=== PATIENT | female | born 1985 | race Caucasian/White ===

== ENCOUNTER 2016-11-12 19:59 | Emergency (ER) | payer OTHER ==
--- NOTE | ~2016-11-12 | CR151 ---
[facility] A Service of [facility] RADIOLOGY TEXT RESULTS PATIENT: CHELI ELIZONDO LOCATION: [place] : [birth year] UNIT #: [id number] AGE: [address]: Kadi Mcclain MD SEX: F ORDER DR: [id number] [address] [address] [id number] MR#: [id number] Acc #: [id number] NAME: CHELI ELIZONDO : 1985 SEX: F STUDY DATE/TIME: 11/12/2016 19:40 UNIT: CFTX ROOM: STUDY DESCRIPTION: CR Hip Min 2 Views Rt Attending Physician: Kadi Mcclain M.D. Referring Physician: Self Referral-Refer Use Only Ordering Physician: Ed Sanjeev Luciano M.D. Primary Care Physician: Kuldip Judd M.D. MEDICAL IMAGING REPORT This report is preliminary unless electronic signature is present EXAM Right hip series, 11/12/2016 INDICATION Right hip pain for the past 4 days. PROCEDURE Frontal view of the pelvis and lateral view of the right hip. COMPARISON None. FINDINGS Previous right hip prosthesis. No surrounding lucency. No acute fracture or dislocation. IMPRESSION No acute findings. Bilateral hip prostheses. Dictated by... Marc Wilson M.D. THIS IS AN ELECTRONICALLY VERIFIED REPORT Marc Wilson M.D. at 11/14/2016 7:00 AM EED/nikolas TD: 11/13/2016 03:25 JOB #: [id number] MEDICAL IMAGING REPORT [facility] A Service of [facility] RADIOLOGY TEXT RESULTS PATIENT: CHELI ELIZONDO LOCATION: [place] : [birth year] UNIT #: [id number] AGE: [address]: Kadi Mcclain MD SEX: F ORDER DR: COPY
== END 2016-11-12 20:06 | disposition home or self-care (01) ==
LOC: CFTX 19:59
DX: S76.011A Strain of muscle, fascia and tendon of right hip, initial encounter (principal); F17.200 Nicotine dependence, unspecified, uncomplicated; Z98.890 Other specified postprocedural states; Z88.5 Allergy status to narcotic agent; Z88.8 Allergy status to other drugs, medicaments and biological substances; X58.XXXA Exposure to other specified factors, initial encounter; Y93.89 Activity, other specified; Y92.009 Unspecified place in unspecified non-institutional (private) residence as the place of occurrence of the external cause
CPT/HCPCS: 73502; 99283